=== PATIENT | female | born 1990 | race Caucasian/White ===

== ENCOUNTER → 2016-10-14 | Outpatient (CLI) | payer OTHER ==
--- NOTE | 2016-10-14 12:49 | US ---
EXAMINATION TYPE: US thyroid st tissue head/neck DATE OF EXAM: 10/14/2016 9:35 AM COMPARISON: NONE CLINICAL HISTORY: 25-year-old female E07.9 Disorder of thyroid, unspecified. Enlarged gland, palpable s bilateral neck. TECHNIQUE: Multiple sonographic images of the thyroid gland are obtained. FINDINGS: Right Lobe: 5.1 x 1.5 x 1.6 cm Left Lobe: 4.3 x 1.5 x 1.8 cm Isthmus Thickness: 3.4 mm Overall homogeneous glandular parenchyma without discrete nodule. The bilateral neck was scanned, there are several nodes noted along the left neck, largest measuring 1.8 cm. Patient feels palpable left posterior neck; at this area there is 1.9 x 0.8 x 1.5 cm node. Pa stephanient also feels lump right posterior neck at the hairline but no abnormality is noted at this level. IMPRESSION: 1. Thyroid gland measurements as above. Normal homogeneous glandular parenchyma without discrete nodu le. 2. Several borderline and mildly enlarged lymph nodes along the left side of the neck. Possibly react tadeo/post inflammatory. These can be followed clinically. If enlargement is noted, the palpable sites can be reimaged.
== END | disposition home or self-care (01) ==
LOC: RADUSWWP 09:12
PROVIDERS: ATTEND Internal Medicine
DX: R59.0 Localized enlarged lymph nodes (principal); E07.9 Disorder of thyroid, unspecified
CPT/HCPCS: 76536

== ENCOUNTER → 2018-09-23 | Outpatient (CLI) | payer OTHER ==
--- NOTE | 2018-09-23 09:32 | US ---
EXAMINATION TYPE: Transabdominal DATE OF EXAM: 12/16/17 COMPARISON: NONE CLINICAL HISTORY: Z36 Confirm dates. Dates EXAM PERFORMED: Transabdominal (TA) EXAM MEASUREMENTS: GESTATIONAL AGE / DATING Dates by LMP: (9 weeks/3 days) EDC: 04/25/2019 Dates by Current Scan for: ( 8 weeks/5 days) EDC: 04/30/2019 MATERNAL ANATOMY Uterus: 10.5 x 6.6 x 6.0 cm Right Ovary: 3.3 x 1.8 x 1.8 cm Left Ovary: 2.6 x 2.1 x 1.3 cm Post CDS / Adnexa: no free fluid Presence of free fluid: no Presence of corpus luteal cyst: no Presence of subchorionic bleed: no GESTATION / SURVEY CRL: 2.1 (8 weeks/5 days) MSD: seen, not measured Yolk Sac (normal less than 6mm): 3.2 mm Heart Rate: 171 bpm Rhythm: Normal IUP: Live IUP Date of LMP: 07/19/2018, Beta HcG (if available): Not available at this time Single live IUP measuring 8 weeks 5 days IMPRESSION: Single live intrauterine with a sonographic age of 8 weeks and 5 days and estimated date of delivery of 04/30/2019 overall concordant with menstrual age.
== END | disposition home or self-care (01) ==
LOC: RADUSWWP 08:33
PROVIDERS: ATTEND Obstetrics & Gynecology
DX: Z36.9 Encounter for antenatal screening, unspecified (principal)
CPT/HCPCS: 76801

== ENCOUNTER → 2018-11-10 | Outpatient (CLI) | payer OTHER ==
[2018-11-10 14:27] LABS: HCT 35.2 % (34.0-46.0); HGB 12.6 gm/dL (11.4-16.0); MCHC 35.7 g/dL (31.0-37.0); MCV 83.9 fL (80.0-100.0); Mean Platelet Volume 7.3; Platelet Count 262 k/uL (150-450); RBC 4.19 m/uL (3.80-5.40); RDW 14.4 % (11.5-15.5); WBC 8.3 k/uL (3.8-10.6)
[2018-11-10 19:56] LABS: HIV 1 AB Non-Reactive (Non-Reactive); HIV AB P24 Non-Reactive (Non-Reactive); HIV P24 AG Non-Reactive (Non-Reactive)
[2018-11-12 09:04] LABS: N. gonorrhoeae,PCR Negative (Neg,Equiv); Neisseria Source Urine
[2018-11-12 09:05] LABS: C. trachomatis,PCR Negative (Neg,Equiv); Chlamydia trachomatis Source Urine
== END | disposition home or self-care (01) ==
LOC: LABWHC1 13:13
PROVIDERS: ATTEND Obstetrics & Gynecology
DX: Z34.81 Encounter for supervision of other normal pregnancy, first trimester (principal); Z3A.00 Weeks of gestation of pregnancy not specified
CPT/HCPCS: 36415; 82565; 82947; 85027; 86762; 86780; 86850; 86900; 86901; 87340; 87390; 87491; 87591

== ENCOUNTER 2019-04-04 07:08 | Outpatient (CLI) | payer OTHER ==
[2019-04-04 08:03] LABS: Appearance,Urine Clear (Clear); Bilirubin,Urine Negative (Negative); Blood,Urine Negative (Negative); Color,Urine Yellow; Glucose,Urine (UA) Negative (Negative); Ketones,Urine Negative (Negative); Leukocyte Esterase,Urine Moderate (Negative); Nitrite,Urine Negative (Negative); Protein,Urine Negative (Negative); Specific Gravity,Urine 1.017 (1.001-1.035); Squamous Epithelial Cell,Urine 1 /hpf (0-4); WBC,Urine 2 /hpf (0-5)
[2019-04-04 08:13] VITALS: BP 114/55; PULSE 99; RESP 18; TEMP 96.8
--- NOTE | 2019-04-04 08:13 | P.MSEPDOC ---
Presenting Problems - Arrival Data Date of Arrival on Unit: 04/04/19 Time of Arrival on Unit: 07:10 Mode of Transport: Wheelchair I agree with the RN Medical Screening Exam: Yes Risk & Benefit of care provided described in d/c instruction: Yes Diagnosis: LOW BACK PAIN (This patient is a pleasant 28-year-old 3 para 2 female 36-1/2 weeks gestation who presents to labor and delivery with complaints of 1 week history of low back pain that is worsened last evening. Patient also had intercourse last evening as well. care is per Dr. Rocha and she is a scheduled repeat in approximately 2-1/2 weeks. Evaluation here shows reactive heart tones. Cervix is closed. Urinalysis is negative for urinary tract infection. It is my impression this patient is having low back pain of there is no evidence of maternal or compromise at this time. There is no evidence of labor. Patient instructed follow-up in the office next week as scheduled. She was given instructions to return if she has regular painful contractions, leaking of fluid, vaginal bleeding and/or other symptomatology.)
== END 2019-04-04 08:14 | disposition home or self-care (01) ==
LOC: FBPOP 07:08
PROVIDERS: ATTEND Obstetrics & Gynecology
DX: O26.893 Other specified pregnancy related conditions, third trimester (principal); M54.5 Low back pain; Z3A.36 36 weeks gestation of pregnancy
CPT/HCPCS: 59025; 81001; G0463; 99213

== ENCOUNTER 2019-04-23 05:05 | Inpatient (IN) | payer OTHER ==
[2019-04-23] MEDS ORDERED: CITRIC ACID-SODIUM CITRATE 15 ML CUP PO ONE (05:30)
[2019-04-23] MEDS ORDERED: CLINDAMYCIN 900 MG in DEXTROSE 5% IN WATER 50 ML IVPB STA ×2 (05:34)
[2019-04-23 05:43] VITALS: BMI 33.5
[2019-04-23] MEDS ORDERED: BUTORPHANOL 1 MG/ML 1 ML VIAL IV PRN (05:44)
[2019-04-23 05:49] LABS: Basophils % (A) 0 %; Eosinophils # (A) 0.2 k/uL (0-0.7); Eosinophils % (A) 1 %; HGB 12.3 gm/dL (11.4-16.0); Lymphocytes # (A) 3.2 k/uL (1.0-4.8); Lymphocytes % (A) 23 %; MCH 28.6 pg (25.0-35.0); MCHC 34.3 g/dL (31.0-37.0); MCV 83.4 fL (80.0-100.0); Mean Platelet Volume 7.7; Monocytes # (A) 0.6 k/uL (0-1.0); Monocytes % (A) 5 %; Neutrophils # (A) 9.5 k/uL (1.3-7.7); Neutrophils % (A) 69 %; Platelet Count 290 k/uL (150-450); RBC 4.32 m/uL (3.80-5.40); RDW 14.3 % (11.5-15.5); WBC 13.9 k/uL (3.8-10.6)
[2019-04-23] MEDS ORDERED: OXYTOCIN 10 UNIT/ML 1 ML VIAL IM PRN (05:50)
[2019-04-23] MEDS ORDERED: CARBOPROST TROMETHAMINE 250 MCG/ML 1 ML AMP IM PRN (05:50)
[2019-04-23] MEDS ORDERED: LIDOCAINE 0.5% (PF) 5 MG/ML (50 ML SDV) SQ PRN (05:50)
[2019-04-23] MEDS ORDERED: TERBUTALINE 1 MG/ML VIAL SQ PRN (05:50)
[2019-04-23] MEDS ORDERED: METHYLERGONOVINE 0.2 MG/ML 1 ML AMP IM PRN (05:50)
[2019-04-23] MEDS: LACTATED RINGERS 1,000 ML IV SCH ×3 (05:53→16:28)
[2019-04-23] MEDS ORDERED: OXYTOCIN 10 UNIT/ML 1 ML VIAL ONE (07:58)
[2019-04-23] MEDS ORDERED: LACTATED RINGERS 1,000 ML BAG IV ONE (07:58)
[2019-04-23] MEDS ORDERED: NALBUPHINE 10 MG/ML (1 ML AMP) ONE (07:58)
[2019-04-23] MEDS ORDERED: ONDANSETRON 4 MG/2 ML VIAL ONE (07:58)
[2019-04-23] MEDS ORDERED: MORPHINE SULFATE (PF) 0.3 MG/0.3 ML SYR ONE (07:58)
[2019-04-23] MEDS ORDERED: KETOROLAC 30 MG/ML 1 ML VIAL ONE (07:58)
[2019-04-23] MEDS ORDERED: HYDROcodone/APAP 7.5-325MG 1 EACH TAB PO PRN (08:56)
[2019-04-23] MEDS ORDERED: diphenhydrAMINE 50 MG CAP PO PRN (08:56)
[2019-04-23] MEDS ORDERED: diphenhydrAMINE 50 MG/ML 1 ML VIAL IVP PRN ×2 (08:56)
[2019-04-23] MEDS ORDERED: diphenhydrAMINE 25 MG CAP PO PRN (08:56)
[2019-04-23] MEDS ORDERED: ONDANSETRON 4 MG/2 ML VIAL IVP PRN (08:56)
[2019-04-23] MEDS ORDERED: NALOXONE 0.4 MG/ML 1 ML VIAL IV PRN (08:56)
[2019-04-23] MEDS ORDERED: ZOLPIDEM 5 MG TAB PO PRN (08:56)
[2019-04-23] MEDS ORDERED: ACETAMINOPHEN TAB 325 MG TAB PO PRN (08:56)
[2019-04-23] MEDS ORDERED: METOCLOPRAMIDE 5 MG/ML 2 ML VIAL IVP PRN (08:56)
--- NOTE | 2019-04-23 08:59 | P.HPOB ---
History of Present Illness H&P Date: 04/23/19 Chief Complaint: Intrauterine at term: Prior sections: Family planning Bessie is a 28-year-old G3 for P2 prior sections here for repeat C- section and tubal. Risks/benefits/alternatives to this procedure were discussed with the patient in detail and all questions were answered for her prior to proceeding to the operative room. Pertinent labs A+ blood type Rh antibody was immune, rubella was immune, hepatitis B surface antigen groupie strep and HIV were all negative. Her Precis course was otherwise unremarkable. She is doing well at this time. On physical exam vital signs are stable and afebrile. Heart regular, lungs clear, extremities without pain. Abdomen is soft gravid uterus is noted. Category 1 tracing is noted. She was admitted earlier this morning for contractions that she was still closed and thick. Assessment intra uterine at term with prior sections: Family planning Plan repeat low transverse section with bilateral tubal occlusion. Past Medical History Past Medical History: Asthma Additional Past Medical History / Comment(s): ASTHMA A CHILD, STATES HIGH RISK FOR BLOOD CLOTS- HAS MTHFR GENE. History of Any Multi-Drug Resistant Organisms: None Reported Past Surgical History: Section, Cholecystectomy Additional Past Surgical History / Comment(s): X2 Past Anesthesia/Blood Transfusion Reactions: No Reported Reaction Past Psychological History: No Psychological Hx Reported Smoking Status: Former smoker Past Alcohol Use History: None Reported Additional Past Alcohol Use History / Comment(s): QUIT SMOKING EARLY JANUARY 2019, SMOKED 5 CIGARETTES /DAY., SMOKED ON AND OFF. Past Drug Use History: None Reported - Past Family History Mother Family Medical History: No Reported History Additional Family Medical History / Comment(s): PATIENTS GRANDMOTHER HAD HX OF BLOOD CLOTS AND PATIENTS AUNT. Medications and Allergies Home Medications Medication Instructions Recorded Confirmed Type Pnv,Calcium 72/Iron/Folic Acid 1 each PO DAILY 04/04/19 04/23/19 History [ Plus Tablet] Allergies Allergy/AdvReac Type Severity Reaction Status Date / Time codeine Allergy Intermediate Vomiting Verified 04/23/19 05:29 Penicillins Allergy Intermediate Rash/Hives Verified 04/23/19 05:29 Exam Osteopathic Statement: *. No significant issues noted on an osteopathic structural exam other than those noted in the History and Physical/Consult. Vital Signs Temp Pulse Resp BP Pulse Ox 04/23/19 05:29 97.2 F L 68 14 110/60 98 Intake and Output 04/22/19 04/23/19 04/23/19 22:59 06:59 14:59 Other: # Voids 1 Results Result Diagrams: 04/23/19 05:30 Abnormal Lab Results - Last 24 Hours (Table) 04/23/19 Range/Units 05:30 WBC 13.9 H (3.8-10.6) k/uL Neutrophils # 9.5 H (1.3-7.7) k/uL
[2019-04-23] MEDS ORDERED: LACTATED RINGERS 1,000 ML IV SCH (09:00)
--- NOTE | 2019-04-23 09:02 | P.OP ---
Date of Procedure: 04/23/19 Preoperative Diagnosis: Intrauterine term: Prior sections: Family planning Postoperative Diagnosis: Same Procedure(s) Performed: Repeat low transverse section with bilateral partial salpingectomy Anesthesia: spinal Surgeon: Kulwinder Castro Shipping Assistant #1: Zoey Rodriguez Estimated Blood Loss (ml): 350 IV fluids (ml): 800 Urine output (ml): 100 Pathology: none sent Condition: stable Disposition: floor Operative Findings: Male scores of 9 and 9 at one and 5 minutes and weight of 7 lbs. 5 oz. Description of Procedure: Patient states the operating suite where a spinal anesthetic was found be adequate. She was prepped and draped in normal sterile fashion and placed in dorsal supine position with leftward tilt. Initially a Pfannenstiel skin incision was made this incision was then carried through to underlying layer of the fascia second knife. Fascia was then nicked in midline and this opening was extended laterally with Perkins scissors. Superior and inferior aspect of this incision were then grasped tented up and bluntly and sharply dissected off the rectus muscles. Rectus muscles were then divided the midline and sharp dissec tion through the peritoneum was made. This opening was then extended superiorly and inferiorly with good visualization of both bowel bladder. Bladder blade was then placed and bladder flap identified. It was entered with Metzenbaum scissors carried across face uterus with metastases scissors. Bladder was then digitally removed from the operative field. Knife was then used to incise uterus this opening was then fully developed with hemostat and extended bluntly. Head was then H medically delivered and mouth nares were bulb suctioned. Nuchal cord 1 was noted but easily reduced. Interim posterior shoulders were then delivered with gentle downward and upward traction followed by the remainder the baby. Umbilical cord was then clamped cut usual fashion an nursery personnel was present and assumed care for the baby. Placenta was then delivered intact and Pitocin was added to the IV. Uterus was then exteriorized cleared of clots and debris and closed in 1 layer with 0 Vicryl suture. Once excellent hemostasis was obtained attention was turned to the fallopian tubes where hemostat was used to clamp the fallopian tube 2-3 cm uterine cornu and a window was created in each mesosalpinx. 2 proximal and 2 distal 2-0 silk sutures were then placed 2 cm apart with the intervening segment excised and tips cauterized. Blood and debris was then suctioned from the posterior cul-de-sac and uterus was then reinserted into the abdomen. Peritoneal layer was then closed with 0 Vicryl suture. Fascial closed with 0 Vicryl suture. One layer of 3-0 Vicryl placed in deep subcuticular tissues to reapproximate skin and close space. Skin was then closed with 3-0 Vicryl subcuticular. Sponge, lap, needle counts were all correct 2. Patient was then taken to the recovery room in stable and satisfactory condition.
[2019-04-23] MEDS: KETOROLAC 30 MG/ML 1 ML VIAL IVP PRN ×2 (16:24→21:58)
[2019-04-23] MEDS: SENNOSIDES-DOCUSATE SODIUM 1 EACH TAB PO SCH (21:57)
[2019-04-23] MEDS: SIMETHICONE 80 MG CHEWABLE PO SCH (21:57)
[2019-04-24] MEDS: KETOROLAC 30 MG/ML 1 ML VIAL IVP PRN (04:16)
[2019-04-24] MEDS: LACTATED RINGERS 1,000 ML IV SCH ×2 (05:25→19:57)
[2019-04-24] MEDS: ACETAMINOPHEN TAB 500 MG TAB PO PRN ×3 (06:03→21:29)
[2019-04-24 07:36] LABS: Basophils % (A) 0 %; Eosinophils # (A) 0.1 k/uL (0-0.7); Eosinophils % (A) 1 %; HCT 32.8 % (34.0-46.0); HGB 10.7 gm/dL (11.4-16.0); Lymphocytes # (A) 1.9 k/uL (1.0-4.8); Lymphocytes % (A) 17 %; MCH 28.2 pg (25.0-35.0); MCHC 32.6 g/dL (31.0-37.0); MCV 86.5 fL (80.0-100.0); Mean Platelet Volume 8.1; Monocytes # (A) 0.5 k/uL (0-1.0); Monocytes % (A) 4 %; Neutrophils # (A) 8.4 k/uL (1.3-7.7); Neutrophils % (A) 76 %; Platelet Count 220 k/uL (150-450); RDW 15.1 % (11.5-15.5)
[2019-04-24] MEDS: SENNOSIDES-DOCUSATE SODIUM 1 EACH TAB PO SCH ×2 (08:23→19:56)
[2019-04-24] MEDS: SIMETHICONE 80 MG CHEWABLE PO SCH ×3 (08:23→19:57)
[2019-04-24] MEDS: IBUPROFEN 600 MG TAB PO PRN ×3 (08:23→19:55)
--- NOTE | 2019-04-24 08:26 | P.PN ---
Progress Note - Text Progress Note Date: 04/24/19 Patient is without complaints. Denies weakness or paresthesia. Denies headache. Pruritis controlled. Pain treated. A/P POD#1 s/p with spinal duramorph - doing well
[2019-04-24] MEDS ORDERED: SIMETHICONE 40 MG/0.6 ML DROPS 2,000 MG/30 ML BOTTLE PO SCH (08:30)
--- NOTE | 2019-04-24 11:12 | P.PNOBGPC ---
Subjective - Subjective Principal diagnosis: Postop day 1 Interval history: Bessie is doing very well postop day 1. She is involuting, voiding and tolerating a diet. She is voicing no complaints other than soreness. Since she is not able take towel 3 or [place] were having to try and use just regular Tylenol which she says at least adequate for her pain relief at this time. Physical exam, vital signs are stable and afebrile. Heart regular, lungs clear, extremities without pain. Abdomen soft uterus is firm. Incision is clean dry and intact. Assessment postop day 1. Plan continue current care. Patient reports: Reports appetite normal, Reports voiding normally, Reports pain well controlled, Reports ambulating normally [place]: doing well Objective - Vital Signs Latest vital signs: Vital Signs Temp Pulse Resp BP Pulse Ox 04/24/19 08:00 97.8 F 63 18 95/48 96 04/24/19 04:00 97.9 F 52 L 14 88/48 97 04/24/19 00:00 98.7 F 100 16 91/56 98 04/23/19 20:00 98.0 F 59 L 14 83/47 99 04/23/19 15:48 97.0 F L 61 16 96/54 97 04/23/19 12:00 96.8 F L 58 L 16 96/59 97 Intake and Output 04/23/19 04/24/19 04/24/19 22:59 06:59 14:59 Output Total 3600 500 Balance -3600 -500 Output: Urine 2700 500 Uretheral (Nguyen) 1800 Other 900 Other: # Voids 2 - Exam Lungs: bilateral: normal Chest: Normal S1, Normal S2 Extremities: Present: normal Abdomen: Present: normal appearance, soft. Absent: distention, tenderness Incision: Present: normal, dry, intact Uterus: Present: normal, firm - Labs Labs: Abnormal Lab Results - Last 24 Hours (Table) 04/24/19 Range/Units 06:51 WBC 11.0 H (3.8-10.6) k/uL Hgb 10.7 L (11.4-16.0) gm/dL Hct 32.8 L (34.0-46.0) % Neutrophils # 8.4 H (1.3-7.7) k/uL
[2019-04-25] MEDS: SIMETHICONE 80 MG CHEWABLE PO SCH ×2 (01:27→07:52)
[2019-04-25] MEDS: IBUPROFEN 600 MG TAB PO PRN ×2 (01:45→07:52)
[2019-04-25] MEDS: SENNOSIDES-DOCUSATE SODIUM 1 EACH TAB PO SCH (07:51)
[2019-04-25 09:38] VITALS: BP 99/66; PULSE 66; RESP 16; TEMP 97.9
--- NOTE | 2019-04-25 10:21 | P.DS ---
Providers Date of admission: 04/23/19 05:05 Expected date of discharge: 04/25/19 Attending physician: Kulwinder Castro Primary care physician: Stated None Hospital Course: Bessie is doing very well postop day 2. She is ambulating, voiding and tolerating her diet. She voices no complaints. Vital signs are stable and afebrile. Heart regular, lungs clear, extremities without pain. Abdomen soft nontender. Uterus firm below the umbilicus. Incision is clean dry and intact. We'll plan discharged home today with instructions follow up with me in 1 week. Prescription for Motrin has been 4 to her pharmacy. She is unable to take narcotics due to near anaphylactic reaction but she is tolerating the Motrin well and after having a bowel movement last night is feeling significantly without pain and doing well. All questions are answered for her at this time. She is stable for discharge this time. Assessment postop day 2. Plan discharged home follow up with me in 1 week. Patient Condition at Discharge: Good Plan - Discharge Summary Discharge Rx Participant: Yes New Discharge Prescriptions: New Ibuprofen [Motrin] 600 mg PO Q6HR PRN #30 tab PRN Reason: Pain No Action Pnv,Calcium 72/Iron/Folic Acid [ Plus Tablet] 1 each PO DAILY Discharge Medication List Pnv,Calcium 72/Iron/Folic Acid [ Plus Tablet] 1 each PO DAILY 04/04/19 [History] Ibuprofen [Motrin] 600 mg PO Q6HR PRN #30 tab 04/25/19 [Rx] Follow up Appointment(s)/Referral(s): Kulwinder Castro DO [Doctor of Osteopathic Medicine] - 1 Week Activity/Diet/Wound Care/Special Instructions: No heavy lifting, limit stairs and driving, pelvic rest. If any high temperatures, heavy bleeding, or severe pain call my office. Discharge Disposition: HOME SELF-CARE
[2019-04-25] MEDS: ACETAMINOPHEN TAB 500 MG TAB PO PRN (14:26)
== END 2019-04-25 14:45 | disposition home or self-care (01) | DRG 784 ==
LOC: 4FBP 05:05
PROVIDERS: ADMIT Obstetrics & Gynecology; ATTEND Obstetrics & Gynecology
PROC: 0UB70ZZ Excision of Bilateral Fallopian Tubes, Open Approach (ICD-10-PCS; 2019-04-23)
PROC: 10D00Z1 Extraction of Products of Conception, Low, Open Approach (ICD-10-PCS; principal; 2019-04-23 08:00)
DX: O34.211 Maternal care for low transverse scar from previous cesarean delivery (principal); E72.12 Methylenetetrahydrofolate reductase deficiency; O99.284 Endocrine, nutritional and metabolic diseases complicating childbirth; O99.52 Diseases of the respiratory system complicating childbirth; J45.909 Unspecified asthma, uncomplicated; N85.8 Other specified noninflammatory disorders of uterus; Z3A.39 39 weeks gestation of pregnancy; Z37.0 Single live birth; Z30.2 Encounter for sterilization; L29.9 Pruritus, unspecified; Z79.899 Other long term (current) drug therapy; Z87.891 Personal history of nicotine dependence; Z90.49 Acquired absence of other specified parts of digestive tract; Z88.5 Allergy status to narcotic agent; Z88.0 Allergy status to penicillin
CPT/HCPCS: 85025; 86850; 86900; 86901; 88302

== ENCOUNTER 2021-11-14 23:00 | Emergency (ER) | payer OTHER ==
[2021-11-14 23:05] VITALS: BP 125/72; PULSE 63; RESP 18; TEMP 98.1
[2021-11-14] MEDS ORDERED: CLINDAMYCIN 150 MG CAP PO STA (23:52)
--- NOTE | 2021-11-15 00:06 | ED ---
ENT HPI - General Chief complaint: Dental/Oral Stated complaint: tooth pain Time Seen by Provider: 11/14/21 23:07 Source: patient Mode of arrival: ambulatory Limitations: no limitations - History of Present Illness Initial comments: This is a 31-year-old female presenting with chief complaint of dental pain. Pain is been persistent for about 2 days that is a constant throbbing pain. It is located on the lower right side. She states that she broke her tooth several weeks ago and went to her dentist for a filling, however as of recent the tooth has become increasingly painful and she is worried it is infected. Patient states that she has tried Motrin, Aleve, and Orajel with little to no relief. She denies dysphagia, fever, chills, trismus, headache, vision changes, sinus pain, chest pain, shortness of breath. - Related Data Home Medications Medication Instructions Recorded Confirmed Pnv,Calcium 72/Iron/Folic Acid 1 each PO DAILY 04/04/19 04/23/19 [ Plus Tablet] Previous Rx's Medication Instructions Recorded Ibuprofen [Motrin] 600 mg PO Q6HR PRN #30 tab 04/25/19 clindamycin HCL [Cleocin] 300 mg PO Q6HR 7 Days #27 cap 11/14/21 Allergies Allergy/AdvReac Type Severity Reaction Status Date / Time codeine Allergy Intermediate Vomiting Verified 11/14/21 23:05 Penicillins Allergy Intermediate Rash/Hives Verified 11/14/21 23:05 Review of Systems ROS Statement: Those systems with pertinent positive or pertinent negative responses have been documented in the HPI. ROS Other: All systems not noted in ROS Statement are negative. Past Medical History Past Medical History: Asthma Additional Past Medical History / Comment(s): ASTHMA A CHILD, STATES HIGH RISK FOR BLOOD CLOTS- HAS MTHFR GENE. History of Any Multi-Drug Resistant Organisms: None Reported Past Surgical History: Section, Cholecystectomy Additional Past Surgical History / Comment(s): X2 Past Anesthesia/Blood Transfusion Reactions: No Reported Reaction Past Psychological History: No Psychological Hx Reported Smoking Status: Current every day smoker Past Alcohol Use History: None Reported Past Drug Use History: None Reported - Past Family History Mother Family Medical History: No Reported History Additional Family Medical History / Comment(s): PATIENTS GRANDMOTHER HAD HX OF BLOOD CLOTS AND PATIENTS AUNT. General Exam Limitations: no limitations General appearance: alert, in no apparent distress Head exam: Present: atraumatic, normocephalic, normal inspection Eye exam: Present: normal appearance, PERRL, EOMI. Absent: scleral icterus, conjunctival injection, periorbital swelling ENT exam: Present: mucous membranes moist Expanded Mouth exam: Absent: drooling, trismus, muffled voice Teeth exam: Present: fractured tooth #, dental tenderness #, gingival enlargement Throat exam: normal inspection Neck exam: Present: normal inspection, full ROM. Absent: tenderness, lymphadenopathy Respiratory exam: Present: normal lung sounds bilaterally. Absent: respiratory distress, wheezes, rales, rhonchi, stridor Cardiovascular Exam: Present: regular rate, normal rhythm, normal heart sounds. Absent: systolic murmur, diastolic murmur, rubs, gallop, clicks Neurological exam: Present: alert, oriented X3, CN II-XII intact Psychiatric exam: Present: normal affect, normal mood Skin exam: Present: warm, dry, intact, normal color. Absent: rash Course Vital Signs 11/14/21 23:03 Temperature 98.1 F Pulse Rate 63 Respiratory 18 Rate Blood Pressure 125/72 O2 Sat by Pulse 99 Oximetry Medical Decision Making - Medical Decision Making This is a 31-year-old female presenting with the chief complaint of dental pain. Pain is located on the lower right side and has been persistent for about 2 days. Motrin, Aleve, Orajel provides little to no relief. On exam 227 is cracked and surrounding gums are inflamed. Mild swelling and tenderness to the right sided mandible. No midline shift on concern for airway obstruction, no brawny induration or lymphadenopathy. Treated with clindamycin 300 mg every 6 hours for 7 days due to penicillin ALLERGY. Her first dose of clindamycin was given here in the EC and the remaining course was transmitted to her pharmacy. Educated patient alternating Motrin and Tylenol for pain relief, do not combine NSAIDs such as Motrin and Aleve. Educated on return parameters. Answered all questions. Follow-up with dentist in 1-2 days. Patient conveyed verbal understanding and agreed to the plan. This case was reviewed with the attending Dr. Hendricks. Disposition Clinical Impression: Dental abscess, Toothache Disposition: HOME SELF-CARE Condition: Good Instructions (If sedation given, give patient instructions): Dental Abscess (ED), Toothache (ED) Additional Instructions: Take antibiotic as prescribed. Alternate Motrin and Tylenol every 3 hours as needed for pain. Do not exceed more than 3500 mg of acetaminophen over 7200 mg of ibuprofen 24 hours. Follow-up with dentist in 1-2 days. Report back to ER with worsening symptoms or new onset alarming symptoms such as fever, chills, dysphasia, headache, vision changes. Prescriptions: clindamycin HCL [Cleocin] 300 mg PO Q6HR 7 Days #27 cap Is patient prescribed a controlled substance at d/c from ED?: No Referrals: Jonn Ordonez DO [Primary Care Provider] - 1-2 days Time of Disposition: 00:06
== END 2021-11-15 00:12 | disposition home or self-care (01) ==
LOC: EC 23:00
DX: K04.7 Periapical abscess without sinus (principal); J45.909 Unspecified asthma, uncomplicated; F17.200 Nicotine dependence, unspecified, uncomplicated; Z88.0 Allergy status to penicillin; Z88.5 Allergy status to narcotic agent; Z90.49 Acquired absence of other specified parts of digestive tract
CPT/HCPCS: 99282